=== PATIENT | male | born 1990 | race Two or more races ===

== ENCOUNTER 2021-11-15 13:34 | Emergency (ER) | payer OTHER ==
[2021-11-15] MEDS ORDERED: NORCO 5-325 TA1 EACH PO (16:58)
[2021-11-15] MEDS ORDERED: IBUPROFEN800 MG PO (16:58)
[2021-11-15] MEDS ORDERED: CEPHALEXIN500 MG PO (16:58)
== END 2021-11-15 17:50 | disposition home or self-care (01) ==
LOC: FER 13:34
DX: S62.600A Fracture of unspecified phalanx of right index finger, initial encounter for closed fracture (principal); Z23 Encounter for immunization; W23.1XXA Caught, crushed, jammed, or pinched between stationary objects, initial encounter; Y92.89 Other specified places as the place of occurrence of the external cause; Y99.0 Civilian activity done for income or pay
CPT/HCPCS: 73130; 90715